=== PATIENT | female | born 1975 | race Caucasian/White ===

== ENCOUNTER 2017-12-24 09:19 | Outpatient (CLI) | payer OTHER ==
[~2017-12-24 09:19] MED LIST: ACIDOPHILUS1 EAC1 PO; CIPRO500 MG PO; KETO10TA2 PO
== END 2017-12-24 16:01 | disposition home or self-care (01) ==
LOC: MAMO-SONO 09:19
DX: Z12.31 Encounter for screening mammogram for malignant neoplasm of breast (principal)

== ENCOUNTER 2018-10-29 08:06 | Outpatient (CLI) | payer OTHER | END 2018-10-29 08:52 | disposition home or self-care (01) | LOC: RAD 08:06 | DX: R10.2 Pelvic and perineal pain (principal); N63.10 Unspecified lump in the right breast, unspecified quadrant; N63.20 Unspecified lump in the left breast, unspecified quadrant; E04.1 Nontoxic single thyroid nodule ==

== ENCOUNTER 2019-10-21 11:28 | Outpatient (CLI) | payer OTHER | END 2019-10-21 11:33 | disposition home or self-care (01) | LOC: MAMO-SONO 11:28 | DX: Z12.31 Encounter for screening mammogram for malignant neoplasm of breast (principal); N63.10 Unspecified lump in the right breast, unspecified quadrant; N63.20 Unspecified lump in the left breast, unspecified quadrant ==

== ENCOUNTER 2019-10-28 08:26 | Outpatient (CLI) | payer OTHER | END 2019-10-28 08:39 | disposition home or self-care (01) | LOC: SONOGRAMA 08:26 → MAMO-SONO 08:26 → SONOGRAMA 08:39 | DX: D25.9 Leiomyoma of uterus, unspecified (principal) ==